=== PATIENT | female | born 1985 | race Caucasian/White ===

== ENCOUNTER → 2021-07-09 | Outpatient (CLI) | payer OTHER ==
[2021-07-09 17:06] LABS: PERCENT SATURATION 70.1 % (13.2-45.0)
[2021-07-09 17:17] LABS: BASO % 0.2 % (0.0-1.0); EOS # 0.1 10^3/uL (0.0-0.5); HEMATOCRIT 43.3 % (36.0-47.0); HEMOGLOBIN 14.6 g/dl (12.0-15.5); LYMPH # 1.6 10^3/uL (1.5-5.0); LYMPH % 29.4 % (24.0-44.0); MEAN CORPUSCULAR HEMOGLOBIN 29.9 pg (27.0-33.0); MEAN CORPUSCULAR HGB CONC 33.7 g/dl (32.0-36.5); MEAN CORPUSCULAR VOLUME 88.7 fl (80.0-96.0); MONO # 0.4 10^3/uL (0.0-0.8); MONO % 7.2 % (2.0-8.0); NEUTROPHILS # 3.4 10^3/uL (1.5-8.5); PLATELET COUNT, AUTOMATED 207 10^3/uL (150-450); RED BLOOD COUNT 4.88 10^6/uL (4.00-5.40); WHITE BLOOD COUNT 5.6 10^3/uL (4.0-10.0)
== END ==
LOC: M LAB 15:28
PROVIDERS: ATTEND Family Medicine
DX: E83.119 Hemochromatosis, unspecified (principal)

== ENCOUNTER → 2021-12-25 | Outpatient (CLI) | payer OTHER ==
[~2021-12-25] MED LIST: ADV250INH INH; ALBU8.5H INH; CLAR1TAB13 PO; L-NO1TBD4 PO; LEXA1TAB; LEXA1TAB PO; MULT1TAB8 PO; OMEP-173; OMEP10CASR PO
== END ==
LOC: M LABSMTC 10:15
PROVIDERS: ATTEND Anesthesiology
DX: Z01.812 Encounter for preprocedural laboratory examination (principal); Z20.822 Contact with and (suspected) exposure to COVID-19

== ENCOUNTER → 2022-01-08 | Outpatient (REF) | payer OTHER | LOC: M LAB REF 13:03 | PROVIDERS: ATTEND Nurse Practitioner Family | DX: R35.0 Frequency of micturition (principal) ==

== ENCOUNTER → 2022-03-15 | Outpatient (REF) | LOC: M LABSMTC 10:53 | PROVIDERS: ATTEND Family Medicine | DX: Z11.52 Encounter for screening for COVID-19 (principal) ==

== ENCOUNTER → 2022-03-18 | Outpatient (REF) | LOC: M LABSMTC 11:33 | PROVIDERS: ATTEND Family Medicine | DX: Z11.52 Encounter for screening for COVID-19 (principal) ==

== ENCOUNTER → 2022-03-29 | Outpatient (REF) ==
[2022-03-29 10:45] LABS: RSV AMPLIFICATION NEGATIVE (NEGATIVE)
== END ==
LOC: M EMP 09:08
PROVIDERS: ATTEND Family Medicine
DX: Z20.822 Contact with and (suspected) exposure to COVID-19 (principal)

== ENCOUNTER → 2022-03-29 | Outpatient (REF) | LOC: M EMP 09:52 | PROVIDERS: ATTEND Family Medicine | DX: Z20.822 Contact with and (suspected) exposure to COVID-19 (principal); Z53.9 Procedure and treatment not carried out, unspecified reason ==

== ENCOUNTER → 2022-05-28 | Outpatient (REF) | payer OTHER ==
[~2022-05-28] MED LIST changes: +FLUO10CA18 PO
== END ==
LOC: M LAB REF 13:03
PROVIDERS: ATTEND Nurse Practitioner Family
DX: Z12.4 Encounter for screening for malignant neoplasm of cervix (principal)
CPT/HCPCS: 87624; G0123

== ENCOUNTER → 2022-05-31 | Outpatient (CLI) | payer OTHER ==
[~2022-05-31] MED LIST changes: -FLUO10CA18 PO
[2022-05-31 08:42] LABS: BASO % 0.5 % (0.0-1.0); EOS # 0.1 10^3/uL (0.0-0.5); HEMATOCRIT 40.6 % (36.0-47.0); LYMPH # 1.6 10^3/uL (1.5-5.0); LYMPH % 35.8 % (24.0-44.0); MEAN CORPUSCULAR HEMOGLOBIN 30.1 pg (27.0-33.0); MEAN CORPUSCULAR HGB CONC 34.5 g/dl (32.0-36.5); MEAN CORPUSCULAR VOLUME 87.3 fl (80.0-96.0); MONO # 0.4 10^3/uL (0.0-0.8); MONO % 8.6 % (2.0-8.0); NEUTROPHILS # 2.4 10^3/uL (1.5-8.5); NEUTROPHILS % 52.9 % (36.0-66.0); PLATELET COUNT, AUTOMATED 182 10^3/uL (150-450); RED BLOOD COUNT 4.65 10^6/uL (4.00-5.40); WHITE BLOOD COUNT 4.4 10^3/uL (4.0-10.0)
[2022-05-31 09:50] LABS: ALBUMIN 3.7 GM/DL (3.2-5.2); ALT/SGPT 28 U/L (12-78); BILIRUBIN,TOTAL 0.5 MG/DL (0.2-1.0); BLOOD UREA NITROGEN 11 MG/DL (7-18); CALCIUM LEVEL 8.9 MG/DL (8.5-10.1); CARBON DIOXIDE LEVEL 26 MEQ/L (21-32); CHLORIDE LEVEL 110 MEQ/L (98-107); CHOLESTEROL LEVEL 154 MG/DL (<200); FERRITIN 27 NG/ML (8-252); FREE T4 0.86 NG/DL (0.76-1.46); GLOMERULAR FILTRATION RATE > 60.0 (>60); GLUCOSE, FASTING 87 MG/DL (70-100); HDL CHOLESTEROL 40 MG/DL (>40); IRON (FE) 91 UG/DL (50-170); LDL CHOLESTEROL 92 MG/DL (<100); NON-HDL-C 114 MG/DL; POTASSIUM SERUM 4.2 MEQ/L (3.5-5.1); SODIUM LEVEL 141 MEQ/L (136-145); TOTAL IRON BINDING CAPACITY 350 UG/DL (250-450); TOTAL PROTEIN 6.5 GM/DL (6.4-8.2); TRIGLYCERIDES LEVEL 111 MG/DL (<150)
[2022-05-31 11:19] LABS: TOTAL 25(OH) VITAMIN D 21.7 NG/ML (30.0-100.0)
== END ==
LOC: M LAB 08:09
PROVIDERS: ATTEND Nurse Practitioner Family
DX: E83.119 Hemochromatosis, unspecified (principal); R63.5 Abnormal weight gain

== ENCOUNTER → 2022-06-06 | Outpatient (REF) ==
[~2022-06-06] MED LIST changes: +FLUO10CA18 PO
== END ==
LOC: M LABSMTC 10:42
PROVIDERS: ATTEND Family Medicine
DX: Z20.822 Contact with and (suspected) exposure to COVID-19 (principal)

== ENCOUNTER → 2022-06-20 | Outpatient (CLI) | payer OTHER ==
[~2022-06-20] MED LIST changes: +DOXY50CA51 PO; +PROZ10CA7 PO
== END ==
LOC: M LABSMTC 09:54
PROVIDERS: ATTEND Anesthesiology
DX: Z11.52 Encounter for screening for COVID-19 (principal)

== ENCOUNTER 2022-06-21 09:05 | Day surgery (SDC) | payer OTHER ==
[~2022-06-21] VITALS: Ht 165.1 cm; Wt 81.2 kg
[~2022-06-21 09:05] MED LIST changes: -DOXY50CA51 PO; +NS 1,000 ML IV ONE; -PROZ10CA7 PO
[2022-06-21] MEDS ORDERED: PROZ10CA7 PO (09:26)
[2022-06-21] MEDS ORDERED: DOXY50CA51 PO (09:26)
[2022-06-21] MEDS ORDERED: propofoL 200 MG/20 ML VIAL As Ordered ONE ×2 (10:32→10:33)
[2022-06-21] MEDS ORDERED: LIDOCAINE 2% 100MG/5ML SDV (FOR ANES.) As Ordered ONE (10:33)
[2022-06-21] MEDS ORDERED: ONDANSETRON 4MG 2ML VIAL As Ordered ONE (10:33)
[2022-06-21 11:01] VITALS: BP 109/67
== END 2022-06-21 11:19 | disposition home or self-care (01) ==
LOC: M OPP 09:05
PROVIDERS: ATTEND Internal Medicine Gastroenterology
DX: K62.5 Hemorrhage of anus and rectum (principal); K64.0 First degree hemorrhoids; F41.9 Anxiety disorder, unspecified; G43.909 Migraine, unspecified, not intractable, without status migrainosus; J45.909 Unspecified asthma, uncomplicated; Z79.51 Long term (current) use of inhaled steroids; Z79.899 Other long term (current) drug therapy; Z88.1 Allergy status to other antibiotic agents; Z88.8 Allergy status to other drugs, medicaments and biological substances
CPT/HCPCS: 45378; J2405

== ENCOUNTER → 2022-07-30 | Outpatient (CLI) | payer OTHER ==
[~2022-07-30] MED LIST changes: +DOXY50CA51 PO; -NS 1,000 ML IV ONE; +PROZ10CA7 PO
== END ==
LOC: M WHC 12:38
PROVIDERS: ATTEND Nurse Practitioner Family
DX: Z12.31 Encounter for screening mammogram for malignant neoplasm of breast (principal); R92.8 Other abnormal and inconclusive findings on diagnostic imaging of breast

== ENCOUNTER → 2022-08-19 | Outpatient (CLI) | payer OTHER | LOC: M WHC 09:57 | PROVIDERS: ATTEND Nurse Practitioner Family | DX: R92.8 Other abnormal and inconclusive findings on diagnostic imaging of breast (principal) | CPT/HCPCS: 76642; 77065; G0279 ==

== ENCOUNTER → 2022-09-01 | Outpatient (CLI) | payer OTHER | LOC: M RAD 08:07 | PROVIDERS: ATTEND Physician Assistant | DX: S93.401A Sprain of unspecified ligament of right ankle, initial encounter (principal); S93.601A Unspecified sprain of right foot, initial encounter; M19.071 Primary osteoarthritis, right ankle and foot; S92.131A Displaced fracture of posterior process of right talus, initial encounter for closed fracture; X58.XXXA Exposure to other specified factors, initial encounter; Y92.9 Unspecified place or not applicable; Y93.9 Activity, unspecified; Y99.9 Unspecified external cause status ==

== ENCOUNTER → 2022-09-08 | Outpatient (REF) | payer OTHER | LOC: M LAB REF 17:36 | PROVIDERS: ATTEND Nurse Practitioner Family | DX: J02.9 Acute pharyngitis, unspecified (principal) ==

== ENCOUNTER → 2022-11-02 | Outpatient (REF) ==
[2022-11-02 13:21] LABS: RSV AMPLIFICATION NEGATIVE (NEGATIVE)
== END ==
LOC: M LABSMTC 11:38
PROVIDERS: ATTEND Family Medicine
DX: Z20.818 Contact with and (suspected) exposure to other bacterial communicable diseases (principal)

== ENCOUNTER → 2022-11-19 | Outpatient (REF) | LOC: M EMP 08:41 | PROVIDERS: ATTEND Family Medicine | DX: Z20.822 Contact with and (suspected) exposure to COVID-19 (principal) ==

== ENCOUNTER → 2023-02-02 | Outpatient (REF) | payer OTHER | LOC: M LAB REF 16:52 | PROVIDERS: ATTEND Nurse Practitioner Family | DX: N39.0 Urinary tract infection, site not specified (principal) ==

== ENCOUNTER → 2023-02-21 | Outpatient (CLI) | payer OTHER | LOC: M WHC 13:13 | PROVIDERS: ATTEND Surgery | DX: N64.59 Other signs and symptoms in breast (principal); Z80.3 Family history of malignant neoplasm of breast | CPT/HCPCS: 77065; G0279 ==